=== PATIENT | male | born 1990 | race Caucasian/White ===

== ENCOUNTER 2017-11-14 21:42 | Emergency (ER) | payer SELFPAY ==
[2017-11-14 22:00] VITALS: BP 127/96; PULSE 98; RESP 16; TEMP 98.2; O2SAT 93
--- NOTE | 2017-11-14 22:20 | EDPHY ---
HPI/HX/ROS/PE/MDM Narrative: CHIEF COMPLAINT: Right knee pain HISTORY OF PRESENT ILLNESS: The patient is a 26 y/o male with a history of gout complaining of right knee pain onset 2 weeks ago. He believes the pain today is due to gout. His gout is typically in his toes, ankles, knees, or right thumb. When the pain initially began 2 weeks ago he went to an urgent care and was prescribed Prednisone. They advised him to present to the ED if his symptoms did not improve after finishing the prednisone prescription. Took ibuprofen last week for pain. Previously took indomethacin for a prior gout attack. No fever, chills, chest pain, shortness of breath, palpitations, vomiting, diarrhea, urinary complaints, headache, lightheadedness. REVIEW OF SYSTEMS: Aside from elements discussed in the HPI, a comprehensive 10-point review of systems was reviewed and is negative. PAST MEDICAL HISTORY: Gout SOCIAL HISTORY: Friend at bedside, lives in [place], single, employed VITAL SIGNS: Reviewed by me GENERAL: Well-developed, well-nourished, resting comfortably in no respiratory distress. HEENT: Atraumatic. Eyes: No icterus, no injection. Mouth: moist mucous membranes. No erythema or lesions. Neck: supple with no adenopathy. LUNGS: Clear to auscultation bilaterally, no wheezes, rhonchi or rales. CARDIAC: Regular rate and rhythm, no rubs, murmurs or gallops. EXTREMITIES: Right knee: Tenderness and swelling over tibial tuberosity, no joint effusion, no warmth, pain with extension. ROM decreased secondary to pain. No trauma. NEURO: Alert and oriented, grossly nonfocal. SKIN: Warm and dry, no rash. PSYCHIATRIC: Normal mentation, no agitation. Portions of this note were transcribed by a regional medical director. I personally performed a history, physical exam, medical decision making, and confirmed accuracy of information the transcribed note. ED Course: The patient is a 26 y/o male with a history of gout complaining of right knee pain onset 2 weeks ago. On exam his right knee has tenderness and swelling over the tibial tuberosity, no joint effusion, no warmth, and pain with extension. His ROM is decreased secondary to pain. Right knee x-ray ordered. 30mg IM Toradol administered. 2208: I reviewed patient's right knee x-ray. 2214: Spoke with radiologist regarding patient's right knee x-ray. 2215: Reassessed patient and discussed imaging findings. I have referred him to a nurses educator. I have prescribed him indomethacin and hydrocodone. Return precautions provided; patient is comfortable with this plan. MDM: Differential diagnoses for the patient's symptom complex was considered including but not limited to gout, bursitis, prepatellar bursitis, tibial tuberosity inflammation, septic joint, sprain, patellar tendon rupture. - Data Points Imaging Results: Right knee xray: Impression: Soft tissue swelling at and anterior to the patella. Ununited ossification center at the tibial tubercle. Dictated By: Pramod Delgado MD Imaging: Discussed imaging studies w/ call center dispatcher Radiologist, I viewed and interpreted images myself Medications Given: Discontinued Medications Hydrocodone Bitart/Acetaminophen ([place] 5/325mg Prepack#6) 1 btl TAKEHOME EDNOW ONE Stop: 11/14/17 22:50 Last Admin: 11/14/17 23:17 Dose: 1 btl Ketorolac Tromethamine (Toradol) 30 mg IM EDNOW ONE Stop: 11/14/17 22:36 Last Admin: 11/14/17 22:39 Dose: 30 mg General Time Seen by Provider: 11/14/17 22:17 Initial Vital Signs: Initial Vital Signs Temperature (C) 36.8 C 11/14/17 21:57 Heart Rate 98 11/14/17 21:57 Respiratory Rate 16 11/14/17 21:57 Blood Pressure 127/96 H 11/14/17 21:57 O2 Sat (%) 93 11/14/17 21:57 O2 Delivery Mode Room Air Allergies/Adverse Reactions: No Known Allergies Allergy (Unverified 11/14/17 21:57) Home Medications: Medication Instructions Recorded Indomethacin [Indocin 25 mg (*)] 50 mg PO TID PRN #30 cap 11/14/17 Departure - Departure Disposition: Home, Routine, Self-Care Clinical Impression: Knee pain, right Qualifiers: Chronicity: acute Qualified Code(s): M25.561 - Pain in right knee Gout attack Qualifiers: Gout site: knee Gout etiology: unspecified cause Laterality: right Qualified Code(s): M10.9 - Gout, unspecified Condition: Good Instructions: Hydrocodone/Acetaminophen (By mouth), Gout (ED) Additional Instructions: You have been given a prescription for indomethacin. Please take this as directed, 50 mg up to 3 times a day. Take it with food. Do not take ibuprofen , Advil, or naproxen at the same time that you are taking indomethacin. Take hydrocodone as prescribed for severe pain. Please follow up with primary care physician as directed. You have also been given referral to a nurses educator. Referrals: [facility],. [Clinic] - As per Instructions Dipak Miller MD [[facility] [place] - As per Instructions Keagan Rodriguez [Doctor of Osteopathy] - As per Instructions Stand Alone Forms: Work Excuse Prescriptions: Indomethacin [Indocin 25 mg (*)] 50 mg PO TID PRN #30 cap PRN Reason: pain Report Scribed for: Josephine Faria Report Scribed by: Sylvia Stahl Date of Report: 11/14/17 Time of Report: 22:20
[2017-11-14] MEDS ORDERED: KETOROLAC 30 MG/1 ML SDV IM ONE (22:35)
[2017-11-14] MEDS ORDERED: HYDROCOD/APAP 5/325 PREPACK#6 BTL TAKEHOME ONE (22:49)
== END 2017-11-14 23:20 | disposition home or self-care (01) ==
DX: M10.9 Gout, unspecified (principal)
CPT/HCPCS: J1885